=== PATIENT | female | born 1980 | race African-American/Black ===

== ENCOUNTER 2024-11-12 20:07 | Emergency (ER) | payer MEDICAID, OTHER ==
[~2024-11-12] VITALS: Ht 154.9 cm; Wt 69.0 kg
[2024-11-12 20:27] VITALS: O2SAT 98
[2024-11-12] MEDS: ACETAMINOPHEN 500MG TABLET PO ONE (21:19)
[2024-11-12] MEDS ORDERED: TOPUD MT (21:56)
[2024-11-12] MEDS ORDERED: LIDO700A15 TP (21:56)
[2024-11-12 23:33] VITALS: BP 124/65; PULSE 60; RESP 18; TEMP 37.00296; O2SAT 98
== END 2024-11-12 23:52 | disposition home or self-care (01) ==
LOC: ER 21:17
DX: M25.512 Pain in left shoulder (principal); M89.8X9 Other specified disorders of bone, unspecified site; Z88.6 Allergy status to analgesic agent; V89.2XXA Person injured in unspecified motor-vehicle accident, traffic, initial encounter; Y93.89 Activity, other specified; Y92.410 Unspecified street and highway as the place of occurrence of the external cause; Y99.8 Other external cause status
CPT/HCPCS: 71045; 99283